=== PATIENT | male | born 1975 | race Asian ===

== ENCOUNTER 2016-12-05 21:49 | Emergency (ER) | payer MEDICAID, OTHER ==
[~2016-12-05] VITALS: Ht 175.3 cm; Wt 90.9 kg
[~2016-12-05 21:49] MED LIST: NOCURR
[2016-12-05] MEDS ORDERED: ATOR40TA28 PO (21:53)
[2016-12-05] MEDS ORDERED: PANT40TA25 PO (21:53)
[2016-12-05] MEDS ORDERED: LISI-662 PO (21:53)
[2016-12-05] MEDS ORDERED: KETOROLAC TROMETHAMINE 30 MG/ML VIAL IM ONE (22:15)
[2016-12-05] MEDS ORDERED: CYCLOBENZAPRINE HCL 10 MG TABLET PO ONE (22:15)
[2016-12-05 22:35] VITALS: BP 144/92
== END 2016-12-05 22:51 | disposition home or self-care (01) ==
LOC: EMS 21:50
DX: S86.912A Strain of unspecified muscle(s) and tendon(s) at lower leg level, left leg, initial encounter (principal); K21.9 Gastro-esophageal reflux disease without esophagitis; E78.00 Pure hypercholesterolemia, unspecified; I10 Essential (primary) hypertension; X58.XXXA Exposure to other specified factors, initial encounter; Y93.61 Activity, american tackle football; Y92.89 Other specified places as the place of occurrence of the external cause; Y99.8 Other external cause status
CPT/HCPCS: 96372; 99283; J1885

== ENCOUNTER 2022-03-16 07:57 | Emergency (ER) | payer BC, OTHER ==
[~2022-03-16] VITALS: Ht 175.3 cm; Wt 100.0 kg
[~2022-03-16 07:57] MED LIST changes: +ATOR40TA28 PO; +LISI-894 PO; +PANT-31 PO
[2022-03-16] MEDS ORDERED: SODIUM CHLORIDE 0.9% 3,000 ML IV ONE (08:15)
[2022-03-16] MEDS ORDERED: ACETAMINOPHEN 1000 MG/ISO-OSM 100 ML IV ONE (08:15)
[2022-03-16] MEDS ORDERED: 0.9% SODIUM CHLORIDE 10 ML SYRINGE IVP PRN (08:15)
[2022-03-16 08:27] LABS: COVID AG,FIA SOURCE NASOPHARYNGEAL
[2022-03-16 08:46] LABS: APPEARANCE,URINE CLEAR (CLEAR); BILIRUBIN,URINE NEGATIVE (NEGATIVE); GLUCOSE, URINE (UA) NEGATIVE (NEGATIVE); KETONES,URINE NEGATIVE (NEGATIVE); LEUKOCYTE ESTERASE ,URINE NEGATIVE (NEGATIVE); NITRATE,URINE NEGATIVE (NEGATIVE); OCCULT BLOOD,URINE NEGATIVE (NEGATIVE); PROTEIN,URINE NEGATIVE (NEGATIVE); SPECIFIC GRAVITIY, URINE 1.018 (1.003-1.030); UROBILINOGEN,URINE <=1.0 mg/dL (<=1.0)
[2022-03-16 08:48] LABS: B-TYPE NATRIURETIC PEPTIDE 24 pg/mL (0-100); BASOPHILS % (AUTO) 0.2 % (0.0-2.0); EOSINOPHILS % (AUTO) 0.9 % (1.0-6.0); HEMATOCRIT 44.4 % (41-53); HEMOGLOBIN 15.1 g/dL (13.5-17.5); LYMPHOCYTES # (AUTO) 1.2 K/uL (1.0-4.8); LYMPHOCYTES % (AUTO) 8.7 % (22.0-44.0); MEAN CORPUSCULAR HEMOGLOBIN 28.9 pg (26.0-34.0); MEAN CORPUSCULAR VOLUME 85 fL (80-100); MONOCYTES # (AUTO) 0.4 K/uL (0.1-1.0); MONOCYTES % (AUTO) 2.7 % (2.0-9.0); NEUTROPHILS # (AUTO) 12.2 K/uL (1.8-7.7); PLATELET COUNT (AUTO) 216 K/uL (150-450); RED BLOOD CELL COUNT(AUTO) 5.22 MIL/uL (4.50-5.90); RED CELL DISTRIBUTION WIDTH 12.8 % (11.5-14.5)
[2022-03-16 08:50] LABS: LACTIC ACID 1.8 mmol/L (0.4-2.0); NEUTROPHILS % (AUTO) 87.5 % (40.0-70.0)
[2022-03-16 08:55] LABS: ANION GAP 8 mmol/L (8-16); CALCIUM, TOTAL 8.5 mg/dL (8.8-10.5); CARBON DIOXIDE 29 mmol/L (22-29); CHLORIDE 106 mmol/L (98-107); CREATININE 1.53 mg/dL (0.60-1.30); GLOMERULAR FILTR. RATE CALC 49 mL/min (>60); GLUCOSE,RANDOM 114 mg/dL (70-110); POTASSIUM 3.4 mmol/L (3.5-5.1); SODIUM SERUM 143 mmol/L (136-145); UREA NITROGEN, BLOOD 20 mg/dL (7-18)
[2022-03-16] MEDS ORDERED: CefTRIAXone 1 GM/DEXTROSE 50 ML IV ONE (09:00)
[2022-03-16] MEDS ORDERED: AZITHROMYCIN 500 MG/NS 250 ML IV ONE (09:00)
[2022-03-16 09:02] LABS: INFLUENZA TYPE A NEGATIVE FOR TYPE A (NEGATIVE); INFLUENZA TYPE B NEGATIVE FOR TYPE B (NEGATIVE)
[2022-03-16 09:19] LABS: ALANINE AMINOTRANSFERASE 88 U/L (12-78); ALBUMIN 4.1 g/dL (3.4-5.0); ALKALINE PHOSPHATASE 139 U/L (46-116); ASPARTATE AMINOTRANSFERASE 41 U/L (15-37); BILIRUBIN,TOTAL 0.3 mg/dL (0.1-1.0); CREATINE KINASE, TOTAL ONLY 294 U/L (39-308); D-DIMER 0.25 mg/L FEU (0.00-0.50); INR 0.9 (0.9-1.1); PHOSPHORUS 2.2 mg/dL (2.5-4.9); PROTHROMBIN TIME 9.6 SEC (9.4-11.6)
[2022-03-16] MEDS ORDERED: POTASSIUM PHOS,M-BASIC-D-BASIC 10 MMOL in DEXTROSE 5%-WATER 100 ML IV ONE (09:45)
[2022-03-16] MEDS ORDERED: DEXAMETHASONE SOD PHOS 4 MG/ML VIAL IVP ONE (09:45)
[2022-03-16 13:18] VITALS: BP 141/81
== END 2022-03-16 14:34 | disposition short-term general hospital (02) ==
LOC: EMS 08:08
DX: J18.9 Pneumonia, unspecified organism (principal); R09.02 Hypoxemia; E78.00 Pure hypercholesterolemia, unspecified; I10 Essential (primary) hypertension; Z20.822 Contact with and (suspected) exposure to COVID-19
CPT/HCPCS: 99285; 96365; 71275; 71045; 96366; 96367; 96375; 87426; 80053; 81003; 82550; 83605; 83735; 83880; 84100; 84484; 85025; 85379; 85610; 87040; 87804; 36415; 93005; 96368; 84145; U0003; J0456; J0696; J1100; J7060; J3490; J7030; J0131